=== PATIENT | female | born 1970 | race Caucasian/White ===

== ENCOUNTER 2024-03-26 17:51 | Emergency (ER) | payer OTHER ==
[~2024-03-26] VITALS: Ht 160 cm; Wt 66.0 kg
[2024-03-26 17:53] VITALS: O2SAT 100
[2024-03-26] MEDS ORDERED: METHOCARBAMOL 500MG TABLET PO ONE (18:00)
[2024-03-26] MEDS ORDERED: BACITRACIN ZINC OINT UDPKT TOP ONE (18:00)
[2024-03-26] MEDS ORDERED: IBUPROFEN 600MG TABLET PO ONE (18:00)
[2024-03-26] MEDS ORDERED: TETANUS, DIPHTHERIA, PERTUSSIS VAC/PF 0.5ML (>10YR OLD) IM ONE (18:00)
[2024-03-26] MEDS ORDERED: METH-653 MT (19:46)
[2024-03-26] MEDS ORDERED: IBUP-2029 MT (19:46)
[2024-03-26] MEDS: METHOCARBAMOL 500MG TABLET PO NR (19:51)
[2024-03-26] MEDS: TETANUS, DIPHTHERIA, PERTUSSIS VAC/PF 0.5ML (>10YR OLD) IM ONE (19:51)
[2024-03-26] MEDS: BACITRACIN ZINC OINT UDPKT TOP NR (19:51)
[2024-03-26] MEDS: IBUPROFEN 600MG TABLET PO NR (19:55)
[2024-03-26 20:05] VITALS: BP 142/75; PULSE 91; RESP 16; TEMP 98.8
== END 2024-03-26 20:05 | disposition home or self-care (01) ==
LOC: ER 17:51
DX: S20.219A Contusion of unspecified front wall of thorax, initial encounter (principal); S00.511A Abrasion of lip, initial encounter; R51.9 Headache, unspecified; E11.9 Type 2 diabetes mellitus without complications; V98.8XXA Other specified transport accidents, initial encounter; Y93.89 Activity, other specified; Y92.89 Other specified places as the place of occurrence of the external cause; Y99.8 Other external cause status
CPT/HCPCS: 71045; 73110; 70450; 90715; 90471; 99285; Z7610 ×2